=== PATIENT | female | born 1960 | race Asian ===

== ENCOUNTER 2017-02-07 21:31 | Emergency (ER) | payer BC ==
[2017-02-07 22:46] LABS: BASOPHIL % 0.2 % (0-2); PLATELET COUNT 187 x10^3mcL (130-400); RED CELL DISTRIBUTION WIDTH 13.1 % (11.5-14.5)
[2017-02-07 22:58] LABS: CALCIUM 8.7 mg/dL (8.5-10.1); CARBON DIOXIDE 23.8 mmol/L (21-32); CHLORIDE SERUM 102 mmol/L (98-107); GFR1 > 60 mL/min; GLUCOSE SERUM 123 mg/dL (74-106); POTASSIUM SERUM 3.5 mmol/L (3.5-5.1); SODIUM SERUM 137 mmol/L (136-145)
[2017-02-07 23:02] LABS: ALBUMIN 3.9 g/dL (3.4-5.0); ALKALINE PHOSPHATASE 92 U/L (46-116); ALT/SGPT 28 U/L (14-59); AMYLASE 69 U/L (25-115); AST/SGOT 23 U/L (15-37); BILIRUBIN TOTAL 0.79 mg/dL (0.20-1.00); LIPASE 134 IU/L (73-393); TOTAL PROTEIN, SERUM 7.9 g/dL (6.4-8.2)
[2017-02-08 00:34] VITALS: BP 145/86
== END 2017-02-08 00:35 | disposition home or self-care (01) ==
LOC: ED 21:31
PROVIDERS: Emergency Medicine
DX: R10.11 Right upper quadrant pain (principal); R11.10 Vomiting, unspecified; R19.7 Diarrhea, unspecified; I10 Essential (primary) hypertension; E78.00 Pure hypercholesterolemia, unspecified
CPT/HCPCS: J2270; J2405; J7030

== ENCOUNTER 2019-06-20 06:01 | Emergency (ER) | payer OTHER ==
[~2019-06-20] VITALS: Ht 147.3 cm; Wt 52.7 kg
[2019-06-20 06:03] VITALS: Ht 147.3 cm; Wt 52.7 kg
[2019-06-20 07:22] LABS: BASOPHIL % 0.2 % (0-2); PLATELET COUNT 171 x10^3mcL (130-400); RED CELL DISTRIBUTION WIDTH 12.8 % (11.5-14.5)
[2019-06-20 07:26] LABS: CALCIUM 8.3 mg/dL (8.5-10.1); CARBON DIOXIDE 22.9 mmol/L (21-32); CHLORIDE SERUM 108 mmol/L (98-107); CREATININE SERUM 0.9 mg/dL (0.6-1.0); GFR1 > 60 mL/min; GLUCOSE SERUM 110 mg/dL (74-106); SODIUM SERUM 142 mmol/L (136-145)
[2019-06-20 07:31] LABS: ALBUMIN 3.6 g/dL (3.4-5.0)
[2019-06-20 07:32] LABS: ALKALINE PHOSPHATASE 97 U/L (46-116); ALT/SGPT 23 U/L (14-59); AST/SGOT 17 U/L (15-37); BILIRUBIN TOTAL 0.5 mg/dL (0.20-1.00); LIPASE 206 IU/L (73-393); TOTAL PROTEIN, SERUM 7.6 g/dL (6.4-8.2)
[2019-06-20 12:27] VITALS: BP 134/66
== END 2019-06-20 12:27 | disposition home or self-care (01) ==
LOC: ED 06:01
PROVIDERS: Emergency Medicine
DX: R10.13 Epigastric pain (principal); R11.10 Vomiting, unspecified; R19.7 Diarrhea, unspecified; E86.0 Dehydration; I10 Essential (primary) hypertension; E78.00 Pure hypercholesterolemia, unspecified
CPT/HCPCS: 87046; 87046-59; J2405; J3010; J7030

== ENCOUNTER 2020-07-09 07:37 | Emergency (ER) | payer OTHER ==
[~2020-07-09] VITALS: Ht 147.3 cm; Wt 56.7 kg
[2020-07-09 07:48] VITALS: Ht 147.3 cm; Wt 56.7 kg
[2020-07-09 09:29] VITALS: BP 178/72
== END 2020-07-09 09:29 | disposition home or self-care (01) ==
LOC: ED 07:37
DX: I10 Essential (primary) hypertension (principal); E78.00 Pure hypercholesterolemia, unspecified; Z90.89 Acquired absence of other organs